=== PATIENT | female | born 1995 | race African-American/Black ===

== ENCOUNTER 2017-05-26 16:01 | Emergency (ER) | payer OTHER ==
[~2017-05-26] VITALS: Ht 160 cm; Wt 61.4 kg
[2017-05-26 16:01] VITALS: BP 114/65
[2017-05-26] MEDS ORDERED: PYRI1TAB5 PO (17:04)
[2017-05-26] MEDS ORDERED: MACR100C43 PO (17:04)
[2017-05-26] MEDS ORDERED: NITROFURANTOIN (MACROBID) 100 MG CAP PO ONE (17:15)
[2017-05-26] MEDS ORDERED: PHENAZOPYRIDINE 100 MG TAB PO ONE (17:15)
== END 2017-05-26 17:13 | disposition home or self-care (01) ==
LOC: M ED 16:01
DX: N39.0 Urinary tract infection, site not specified (principal); R31.9 Hematuria, unspecified

== ENCOUNTER 2017-11-02 18:40 | Emergency (ER) | payer OTHER ==
[2017-11-02 22:32] LABS: KETONE, URINE AUTO RFX NEGATIVE (NEGATIVE); MUCUS, URINE RFX SMALL (NEGATIVE); NITRITE, URINE AUTO RFX NEGATIVE (NEGATIVE); RBC, URINE AUTO RFX 6 /HPF (0-3); SPECIFIC GRAVITY UR AUTO RFX 1.018 (1.002-1.035); SQUAM EPITHELIAL CELL UR AURFX 2 /HPF (0-6); WBC, URINE AUTO RFX 4 /HPF (0-3)
[2017-11-02 22:49] LABS: LEUKOCYTE ESTERASE UR AUTO RFX 2+ (NEGATIVE)
[2017-11-02] MEDS: CIPROFLOXACIN 500 MG TAB PO (23:17)
== END 2017-11-02 23:19 | disposition home or self-care (01) ==
LOC: M ED 18:40
DX: J06.9 Acute upper respiratory infection, unspecified (principal)
CPT/HCPCS: 81001

== ENCOUNTER 2019-06-13 08:14 | Emergency (ER) | payer OTHER ==
[~2019-06-13] VITALS: Ht 162.6 cm; Wt 68.2 kg
[~2019-06-13 08:14] MED LIST: CIPR-249 PO; MACR100C43 PO; PYRI1TAB5 PO
[2019-06-13] MEDS ORDERED: NORG1TAB (08:19)
[2019-06-13] MEDS ORDERED: KETOROLAC 30 MG/ML VIAL (J1885) IV ONE (09:30)
[2019-06-13] MEDS ORDERED: ONDANSETRON 4MG/2ML VIAL (J2405) IV ONE (09:30)
[2019-06-13] MEDS ORDERED: NS 1,000 ML IV ONE (09:30)
[2019-06-13 09:52] LABS: BASO % 0.4 % (0.0-1.0); EOS # 0.1 10^3/uL (0.0-0.50); EOS % 1.8 % (0.0-3.0); HEMATOCRIT 38.7 % (36.0-47.0); LYMPH # 2.3 10^3/uL (1.5-6.5); LYMPH % 29.9 % (24.0-44.0); MEAN CORPUSCULAR HEMOGLOBIN 30.2 pg (27.0-33.0); MEAN CORPUSCULAR HGB CONC 33.6 g/dl (32.0-36.5); MEAN CORPUSCULAR VOLUME 89.8 fl (80.0-96.0); MONO # 0.6 10^3/uL (0.0-0.8); MONO % 7.4 % (0.0-5.0); NEUTROPHILS # 4.6 10^3/uL (1.8-7.7); NEUTROPHILS % 60.2 % (36.0-66.0); PLATELET COUNT, AUTOMATED 273 10^3/uL (150-450); RED BLOOD COUNT 4.31 10^6/uL (4.00-5.40); WHITE BLOOD COUNT 7.7 10^3/uL (4.0-10.0)
[2019-06-13] MEDS ORDERED: ISOVUE-370 76% 100ML VIAL (Q9967) As Ordered ONE (09:57)
[2019-06-13 10:16] LABS: ALBUMIN 3.3 GM/DL (3.2-5.2); BILIRUBIN,DIRECT 0.1 MG/DL (0.0-0.2); BILIRUBIN,TOTAL 0.3 MG/DL (0.2-1.0); TOTAL PROTEIN 6.9 GM/DL (6.4-8.2)
--- NOTE | 2019-06-13 10:41 | REP ---
CT of the abdomen and pelvis with IV contrast, without bowel contrast for right lower quadrant pain: There are no comparisons. The appendix has a normal appearance. There is a small volume of free fluid in the right adnexa and along the lateral margin of the liver. There is a tiny volume of free fluid in the left adnexa. The uterus and bladder are unremarkable. There are no adnexal cysts. There is no pelvic adenopathy. The visualized lung rollins are unremarkable. The hepatic parenchyma, gallbladder, pancreas, spleen, adrenals, kidneys, abdominal aorta, bowel and mesentery are unremarkable. Impression: The appendix has a normal appearance. There is a small volume of free fluid in the right adnexa and along the lateral margin of the liver and is a tiny volume of free fluid in the left adnexa. There are no adnexal cysts. Otherwise, negative CT of the abdomen and pelvis. Electronically Signed by Garcia Shafer MD 06/13/2019 10:32 A
--- NOTE | 2019-06-13 11:41 | REP ---
Pelvic ultrasound for right sided pelvic pain, free fluid on CT: The study is performed with transabdominal, endovaginal and Doppler ultrasound assessment: The uterus is anteverted and normal size measuring 7.9 x 4.2 x 4.7 cm. The endometrium is not thickened measuring 6 mm. Right ovary: The right ovary is normal size and measures 4.4 x 4.5 x 5 and 0 cm. There is a right ovarian cyst measuring 2.8 x 2.3 x 2.9 cm. There is vascular flow with the Doppler resistive index of the parenchymal arteries measuring 0.67. Left ovary: The left ovary is normal size measuring 2.9 x 2.0-0.6 cm. There is no dominant mass or cyst. There is vascular flow with the Doppler resistive index of the parenchymal arteries measuring 0.63. There is free fluid throughout the pelvis. Impression: There is a right ovarian cyst measuring 2.8 x 2.3 x 2.9 cm. There is free fluid throughout the pelvis. Electronically Signed by Garcia Shafer MD 06/13/2019 11:33 A
[2019-06-13] MEDS: MORPHINE 2 MG/ML 1ML SYRINGE (J2270) IV ONE ×2 (12:15→12:32)
[2019-06-13 12:52] VITALS: BP 108/67
[2019-06-13] MEDS ORDERED: TRAM50TA2 PO (13:14)
== END 2019-06-13 13:53 | disposition home or self-care (01) ==
LOC: M ED 08:14
DX: N83.201 Unspecified ovarian cyst, right side (principal); R10.2 Pelvic and perineal pain; R11.0 Nausea; Z87.440 Personal history of urinary (tract) infections; Z79.3 Long term (current) use of hormonal contraceptives
CPT/HCPCS: 74177; 76830; 76856; 80047; 80076; 81001; 83690; 84702; 85025; 93976; 96374; 96375; 99284; J1885; J2405; Q9967

== ENCOUNTER 2019-09-05 11:23 | Emergency (ER) | payer OTHER ==
[~2019-09-05] VITALS: Ht 162.6 cm; Wt 63.6 kg
[2019-09-05 11:23] VITALS: BP 128/60
[~2019-09-05 11:23] MED LIST changes: +NORG1TAB4; +TRAM50TA2 PO
[2019-09-05 12:15] LABS: BASO % 0.4 % (0.0-1.0); EOS # 0.1 10^3/uL (0.0-0.5); EOS % 0.8 % (0.0-3.0); HEMATOCRIT 39.7 % (36.0-47.0); HEMOGLOBIN 13.1 g/dl (12.0-15.5); LYMPH % 39.7 % (24.0-44.0); MEAN CORPUSCULAR HEMOGLOBIN 29.9 pg (27.0-33.0); MEAN CORPUSCULAR VOLUME 90.6 fl (80.0-96.0); MONO # 0.6 10^3/uL (0.0-0.8); MONO % 7.4 % (0.0-5.0); NEUTROPHILS # 3.9 10^3/uL (1.5-8.5); NEUTROPHILS % 51.4 % (36.0-66.0); PLATELET COUNT, AUTOMATED 254 10^3/uL (150-450); RED BLOOD COUNT 4.38 10^6/uL (4.00-5.40); WHITE BLOOD COUNT 7.7 10^3/uL (4.0-10.0)
[2019-09-05 12:42] LABS: ALBUMIN 3.6 GM/DL (3.2-5.2); ALT/SGPT 28 U/L (12-78); BILIRUBIN,DIRECT < 0.1 MG/DL (0.0-0.2); BILIRUBIN,TOTAL 0.3 MG/DL (0.2-1.0); BLOOD UREA NITROGEN 7 MG/DL (7-18); CALCIUM LEVEL 9.4 MG/DL (8.5-10.1); CARBON DIOXIDE LEVEL 29 MEQ/L (21-32); CHLORIDE LEVEL 106 MEQ/L (98-107); CREATININE FOR GFR 0.76 MG/DL (0.55-1.30); GLOMERULAR FILTRATION RATE > 60.0 (>60); GLUCOSE, FASTING 82 MG/DL (70-100); LIPASE 145 U/L (73-393); POTASSIUM SERUM 4.2 MEQ/L (3.5-5.1); SODIUM LEVEL 139 MEQ/L (136-145); TOTAL PROTEIN 7.3 GM/DL (6.4-8.2)
== END 2019-09-05 16:16 | disposition left against medical advice (07) ==
LOC: M ED 11:23
DX: Z53.21 Procedure and treatment not carried out due to patient leaving prior to being seen by health care provider (principal)

== ENCOUNTER → 2020-01-01 | Outpatient (CLI) | payer OTHER ==
--- NOTE | 2020-01-01 21:43 | REP ---
Clinical: Dating and viability. Technique: Transabdominal first trimester obstetrical ultrasound with color Doppler evaluation. Findings: Single live early intrauterine identified. CRL of 8 mm corresponds to 6 weeks 5 days gestational age with estimated date of delivery 08/21/2020. heart rate equals 150 beats per minute. No gross abnormalities are identified. Maternal ovaries are normal. Right ovary measures 2.0 x 1.7 x 1.4 cm. Left ovary measures 2.1 x 2.4 x 1.2 cm. Impression: Single live early intrauterine at 6 weeks 5 days gestational age. Complete anatomical assessment should be performed at 19-20 weeks. Electronically Signed by Ulices Alvarez MD 01/01/2020 09:34 P
== END ==
LOC: M RAD 16:35
PROVIDERS: ATTEND Physician Assistant
DX: Z32.01 Encounter for pregnancy test, result positive (principal)